=== PATIENT | male | born 2005 | race Caucasian/White ===

== ENCOUNTER 2024-03-09 01:36 | Emergency (ER) | payer OTHER ==
[~2024-03-09] VITALS: Ht 177.8 cm; Wt 68.2 kg
[2024-03-09 01:50] VITALS: TEMP 97.8
[2024-03-09 01:57] VITALS: BP 108/75; PULSE 66; RESP 18
[2024-03-09] MEDS: FLUORESCEIN SODIUM 1 MG STRIP OD ONE (02:06)
[2024-03-09] MEDS: PROPARACAINE HCL 0.5% 15 ML OPHTHALMIC SOLUTION OD ONE (02:06)
[2024-03-09] MEDS ORDERED: TOBR5DRO44 OD (02:23)
== END 2024-03-09 02:30 | disposition home or self-care (01) ==
LOC: EMS 01:37
DX: S05.01XA Injury of conjunctiva and corneal abrasion without foreign body, right eye, initial encounter (principal); X58.XXXA Exposure to other specified factors, initial encounter; Y93.89 Activity, other specified; Y92.89 Other specified places as the place of occurrence of the external cause; Y99.8 Other external cause status
CPT/HCPCS: 99283